=== PATIENT | male | born 1945 | race Caucasian/White ===

== ENCOUNTER → 2017-07-21 | Outpatient (CLI) | payer MEDICARE | END | disposition home or self-care (01) | LOC: CFH 07:59 | PROVIDERS: ATTEND Internal Medicine Cardiovascular Disease | DX: I11.9 Hypertensive heart disease without heart failure (principal); I25.89 Other forms of chronic ischemic heart disease; E11.9 Type 2 diabetes mellitus without complications; I49.3 Ventricular premature depolarization; E78.5 Hyperlipidemia, unspecified | CPT/HCPCS: 78452; 93017; 93306; A9502 ==

== ENCOUNTER 2017-08-02 09:41 | Day surgery (SDC) | payer MEDICARE ==
[~2017-08-02] VITALS: Ht 177.8 cm; Wt 90.0 kg
[~2017-08-02 09:41] MED LIST: ASPI-621 PO; ATOR20TA9 PO; CALC1CAP8 PO; GLYB1TAB12 PO; LEVO50TA5 PO; LISI-167 PO; MATURE MVT PO; METF500T4 PO; METO25TA2 PO
[2017-08-02] MEDS ORDERED: ACETAMINOPHEN 325 MG TABLET PO PRN (10:00)
[2017-08-02] MEDS ORDERED: BISACODYL 5 MG EC TABLET PO PRN (10:00)
[2017-08-02] MEDS ORDERED: ZOLPIDEM 5MG TABLET PO PRN (10:00)
[2017-08-02] MEDS ORDERED: SODIUM CHLORIDE 0.9% 1,000 ML IV SCH (10:00)
[2017-08-02] MEDS ORDERED: ASPIRIN 325 MG TABLET EC PO ONE (10:00)
[2017-08-02] MEDS ORDERED: ONDANSETRON 2MG/ML, 2ML IVPush PRN (10:00)
[2017-08-02 10:06] VITALS: BP 132/80
[2017-08-02 10:33] VITALS: BP 130/82
[2017-08-02] MEDS ORDERED: LIDOCAINE 2%, 20ML ONE (13:04)
[2017-08-02] MEDS ORDERED: MIDAZOLAM 1 MG/ML, 5ML ONE (13:04)
[2017-08-02] MEDS ORDERED: FENTANYL PF 100 MCG/2ML ONE (13:04)
[2017-08-02] MEDS ORDERED: metFORMIN 500 MG TABLET PO SCH (17:00)
[2017-08-02] MEDS ORDERED: ATORVASTATIN 20 MG TABLET PO SCH (21:00)
[2017-08-03] MEDS ORDERED: METOPROLOL SUCCINATE 25 MG TAB.ER.24H PO SCH (06:00)
[2017-08-03] MEDS ORDERED: LEVOTHYROXINE 50 MCG TABLET PO SCH (06:00)
[2017-08-03] MEDS ORDERED: ASPIRIN 81 MG TABLET EC PO SCH (06:00)
[2017-08-03] MEDS ORDERED: LISINOPRIL 10 MG TABLET PO SCH (09:00)
[2017-08-03] MEDS ORDERED: MULTIVITAMIN 1 TABLET PO SCH (09:00)
== END 2017-08-02 18:00 ==
LOC: CACL 09:41 → 5SO 14:21 → CACL 18:00
PROVIDERS: ATTEND Internal Medicine Cardiovascular Disease
DX: I25.10 Atherosclerotic heart disease of native coronary artery without angina pectoris (principal); I10 Essential (primary) hypertension; E11.9 Type 2 diabetes mellitus without complications; E03.9 Hypothyroidism, unspecified; E78.5 Hyperlipidemia, unspecified; Z79.84 Long term (current) use of oral hypoglycemic drugs; Z87.891 Personal history of nicotine dependence; Z79.82 Long term (current) use of aspirin; E78.2 Mixed hyperlipidemia
CPT/HCPCS: 93458; 99156; C1760; C1894; J2250; J3010; J3490; Q9967

== ENCOUNTER 2019-05-29 06:56 | Outpatient (CLI) | payer MEDICARE ==
[~2019-05-29 06:56] MED LIST changes: -ASPI-621 PO; +ASPI81TA45 PO; +ATOR20TA37 PO; -ATOR20TA9 PO; +GLYB-135 PO; -GLYB1TAB12 PO; +METF500T17 PO; -METF500T4 PO
== END 2019-05-29 23:59 | disposition home or self-care (01) ==
LOC: CFH 06:56
PROVIDERS: ATTEND Internal Medicine Cardiovascular Disease
DX: I08.1 Rheumatic disorders of both mitral and tricuspid valves (principal)
CPT/HCPCS: 93306

== ENCOUNTER → 2020-11-03 | Outpatient (CLI) | payer MEDICARE ==
[~2020-11-03] MED LIST changes: -GLYB-135 PO; +GLYB1TAB16 PO; +REGADENOSON 0.4 MG/5 ML SYRINGE ONE
== END | disposition home or self-care (01) ==
LOC: CFH 07:51
PROVIDERS: ATTEND Internal Medicine Cardiovascular Disease
DX: I21.19 ST elevation (STEMI) myocardial infarction involving other coronary artery of inferior wall (principal); I10 Essential (primary) hypertension; R93.1 Abnormal findings on diagnostic imaging of heart and coronary circulation; R94.31 Abnormal electrocardiogram [ECG] [EKG]
CPT/HCPCS: 78452; 93017; A9502; J2785

== ENCOUNTER 2021-07-28 10:51 | Outpatient (CLI) | payer MEDICARE ==
[~2021-07-28 10:51] MED LIST changes: -REGADENOSON 0.4 MG/5 ML SYRINGE ONE
== END 2021-07-28 23:59 | disposition home or self-care (01) ==
LOC: CFH 10:51
PROVIDERS: ATTEND Internal Medicine Cardiovascular Disease
DX: I36.1 Nonrheumatic tricuspid (valve) insufficiency (principal); R94.31 Abnormal electrocardiogram [ECG] [EKG]
CPT/HCPCS: 93306